=== PATIENT | female | born 1945 | race Caucasian/White ===

== ENCOUNTER 2020-06-27 16:40 | Emergency (ER) | payer MEDICARE ==
[2020-06-27] MEDS ORDERED: LEVOTHYROXIN50 MCG PO (17:52)
[2020-06-27] MEDS ORDERED: NABUMETONE750 MG PO (17:53)
[2020-06-27] MEDS ORDERED: SIMVASTATIN40 MG PO (17:53)
[2020-06-27] MEDS ORDERED: VENLAFAXINE37.5 M1 PO (17:54)
[2020-06-27] MEDS ORDERED: MULTIVITAMIN1 TAB (17:55)
[2020-06-27] MEDS ORDERED: LATANOPROST0.005 % OP (17:55)
[2020-06-27 18:09] LABS: HEMATOCRIT 37.7 % (37.0-47.0); HEMOGLOBIN 12.1 g/dl (12.0-16.0); IMMATURE GRANULOCYTES 0.8 % (0.0-5.0); MEAN CELL VOLUME 88.1 fL CALC (80.0-100.0); MEAN CORPUSCULAR HGB 28.3 pG CALC (26.0-32.0); MEAN CORPUSCULAR HGB CONC 32.1 g/dL CAL (32.0-36.0); NEUT# 12.63 thou/uL (2.00-7.15); RED BLOOD COUNT 4.28 mill/uL (4.20-5.60)
[2020-06-27 18:15] LABS: ALBUMIN 4.2 g/dL (3.2-5.0); CREATININE 1.1 mg/dL (0.5-1.0); TOTAL PROTEIN 7.4 g/dL (6.3-8.2)
[2020-06-27 18:24] LABS: POTASSIUM 4.1 mmol/l (3.5-5.1)
[2020-06-27 19:00] VITALS: BP 138/70
--- NOTE | 2020-06-29 07:53 | NUR ---
PER NIKO IN LAB, PRELIM BLOOD CX RESULTS SHOW GRAM POSITIVE COCCI. PT WAS TRANSFERRED TO [facility], RESULTS CALLED TO [facility] AND FAXED TO [phone]
== END 2020-06-27 19:00 | disposition short-term general hospital (02) ==
LOC: ED 16:40
DX: M79.A12 Nontraumatic compartment syndrome of left upper extremity (principal); L03.114 Cellulitis of left upper limb; E03.9 Hypothyroidism, unspecified; E78.5 Hyperlipidemia, unspecified; R78.81 Bacteremia